=== PATIENT | male | born 1970 | race Caucasian/White ===

== ENCOUNTER 2017-08-16 19:32 | Emergency (ER) | payer BC ==
[~2017-08-16] VITALS: Ht 180.3 cm; Wt 134.9 kg
[~2017-08-16 19:32] MED LIST: Ecotrin PO; FLEXERIL10 MG PO; NAPROSYN500 MG PO; NOHOMEMEDS; Plavix PO; Toprol XL PO
[2017-08-16 20:10] LABS: HEMATOCRIT 41.6 % (38.0-50.0); HEMOGLOBIN 14.8 G/DL (12.5-16.6); MCH 30.5 PG (29.0-34.0); MCHC 35.6 G/DL (30.0-36.0); MCV 85.6 FL (86-99); PLATELET COUNT 289 K/uL (156-360); RBC DIS.WIDTH-CV 12.6 % (11.8-14.6); RBC DIS.WIDTH-SD 39.1 % (39-53); RED BLOOD COUNT 4.86 M/uL (4.00-5.50)
[2017-08-16 20:22] LABS: CHLORIDE 104 mEq/L (99-109); POTASSIUM 3.7 mEq/L (3.7-5.4); SODIUM 141 mEq/L (136-147)
[2017-08-16 20:23] LABS: GLUCOSE 111 mg/dL (70-99)
[2017-08-16 20:27] LABS: CREATININE 0.9 mg/dL (0.6-1.3); GFR ESTIMATE (CALCULATED) > 59 mL/min/ (58.99-99999)
[2017-08-16 20:28] LABS: UREA NITROGEN (BUN) 11 mg/dL (9-23)
[2017-08-16] MEDS ORDERED: VENTOLIN HFA18 GM IH (23:49)
[2017-08-16] MEDS ORDERED: ZITHROMAX Z-PA250 MG PO (23:49)
[2017-08-16] MEDS ORDERED: PREDNISONE10 M1 PO (23:49)
[2017-08-17 00:17] VITALS: BP 151/106
== END 2017-08-17 00:30 | disposition home or self-care (01) ==
LOC: EME 19:32
PROVIDERS: Physician Assistant
DX: J06.9 Acute upper respiratory infection, unspecified (principal); J01.90 Acute sinusitis, unspecified; J45.909 Unspecified asthma, uncomplicated; F17.200 Nicotine dependence, unspecified, uncomplicated; R06.2 Wheezing; R79.1 Abnormal coagulation profile
CPT/HCPCS: 71046; 71275; 80048; 85027; 85379; 93005; 94640; 99281; 99285; J2930; J7030

== ENCOUNTER 2017-09-18 20:53 | Emergency (ER) | payer SELFPAY ==
[~2017-09-18] VITALS: Ht 180.3 cm; Wt 131.0 kg
[~2017-09-18 20:53] MED LIST changes: +PREDNISONE10 M1 PO; +VENTOLIN HFA18 GM IH; +ZITHROMAX Z-PA250 MG PO
[2017-09-18 22:06] LABS: HEMATOCRIT 44.5 % (38.0-50.0); HEMOGLOBIN 15.6 G/DL (12.5-16.6); MCH 30.4 PG (29.0-34.0); MCHC 35.1 G/DL (30.0-36.0); MCV 86.6 FL (86-99); PLATELET COUNT 274 K/uL (156-360); RBC DIS.WIDTH-CV 12.8 % (11.8-14.6); RBC DIS.WIDTH-SD 40.2 % (39-53); RED BLOOD COUNT 5.14 M/uL (4.00-5.50); WHITE BLOOD COUNT 10.7 K/uL (4.1-10.2)
[2017-09-18 22:16] LABS: CHLORIDE 102 mEq/L (99-109); POTASSIUM 3.5 mEq/L (3.7-5.4); SODIUM 142 mEq/L (136-147)
[2017-09-18 22:18] LABS: GLUCOSE 130 mg/dL (70-99)
[2017-09-18 22:22] LABS: CREATININE 1.2 mg/dL (0.6-1.3); GFR ESTIMATE (CALCULATED) > 59 mL/min/ (58.99-99999)
[2017-09-18 22:23] LABS: UREA NITROGEN (BUN) 15 mg/dL (9-23)
[2017-09-18 23:03] LABS: APPEARANCE CLOUDY ((CLEAR)); BILIRUBIN SMALL; BLOOD LARGE; COLOR AMBER ((YELLOW)); GLUCOSE (STRIP) NEGATIVE; KETONES 5; LEUKOCYTES NEGATIVE; NITRITE NEGATIVE; PROTEIN (STRIP) 100; SPECIFIC GRAVITY 1.031 (1.000-1.030)
[2017-09-19 00:08] LABS: BACTERIA NONE SEEN /HPF; EPITHELIAL CELLS RARE /HPF; MUCUS 1+ /LPF; RED BLOOD CELLS TNTC /HPF (0-5); UCUL ADDED? YES; WHITE BLOOD CELLS 0-5 /HPF (0-5)
[2017-09-19 00:10] LABS: CREATINE KINASE 338 IU/L (1-294)
[2017-09-19] MEDS ORDERED: PERCOCET 5/31 TABLET PO (02:45)
[2017-09-19] MEDS ORDERED: FLOMAX0.4 MG PO (02:45)
[2017-09-19 03:51] VITALS: BP 135/86
== END 2017-09-19 03:55 | disposition home or self-care (01) ==
LOC: EME 20:53
PROVIDERS: Emergency Medicine
DX: N13.2 Hydronephrosis with renal and ureteral calculous obstruction (principal); J45.909 Unspecified asthma, uncomplicated; F17.200 Nicotine dependence, unspecified, uncomplicated
CPT/HCPCS: 74176; 80048; 81003; 82550; 85027; 87086; 99281; 99285; J1885; J7030